=== PATIENT | female | born 1995 | race Caucasian/White ===

== ENCOUNTER 2024-11-13 09:59 | Emergency (ER) | payer MEDICAID, SELFPAY ==
[2024-11-13 10:00] VITALS: BMI 48.0
[2024-11-13 10:16] VITALS: BP 121/83; PULSE 88; RESP 18; TEMP 36.9; O2SAT 99
--- NOTE | 2024-11-13 10:21 | EDRME_ITS ---
Rapid Medical Screening Exam [facility] Arrival date/time: 11/13/24 09:59 29-year-old female with no known medical history presents to the emergency room with a chief complaint of fever, cough, congestion and a syncopal episode that occurred this morning where patient lost consciousness and woke up on the floor. I have greeted and performed a focused initial assessment of this patient. A comprehensive ED assessment and evaluation of the patient, analysis of all test results, and completion of the medical decision making process will be conducted by additional ED providers. Chief Complaint: Nausea/Vomiting/Diarrhea Vital signs: Vital Signs Temperature 98.5 F 11/13/24 10:16 Pulse Rate 88 11/13/24 10:16 Respiratory Rate 18 11/13/24 10:16 Blood Pressure 121/83 11/13/24 10:16 Pulse Oximetry (%) 99 11/13/24 10:16 Oxygen Delivery Method Room Air 11/13/24 10:16 Vital signs reviewed by provider: Yes
--- NOTE | 2024-11-13 10:21 | EKG_ITS ---
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
[2024-11-13 10:56] LABS: Basophils % (Auto) 1 % (0-2.5); Eosinophils % (Auto) 0 % (0-10); Hematocrit 39.4 % (36.0-46.0); Hemoglobin 13.1 g/dL (12.0-16.0); Immature Granulocytes % (Auto) 1 % (0-0); Immature Granulocytes Auto 0.01 Thou/mm3 (0.00-0.00); Lymphocytes # (Auto) 0.5 Thou/mm3 (1.0-4.8); Lymphocytes % (Auto) 26 % (10-50); Mean Corpuscular HGB Conc 33.2 g/dl (31.0-37.0); Mean Corpuscular Hemoglobin 25.6 pg (25.0-35.0); Mean Corpuscular Volume 77 fL (80-100); Monocytes # (Auto) 0.4 Thou/mm3 (0.0-0.8); Monocytes % (Auto) 20 % (0-12); Neutrophils # (Auto) 0.9 Thou/mm3 (1.8-7.7); Neutrophils % (Auto) 52 % (37-80); Nucleated Red Blood Cell % 0 /100 WBC (0); Platelet Count 155 Thou/mm3 (140-440); Red Blood Count 5.12 Miln/mm3 (4.00-5.20)
[2024-11-13 10:58] LABS: White Blood Count 1.8 Thou/mm3 (3.6-11.0)
--- NOTE | 2024-11-13 10:59 | XR_ITS ---
Examination: AP chest single view TECHNIQUE: Portable sitting AP chest single view Exam date and time: November 13, 2024 1122 hours INDICATIONS: Flu symptoms with syncope vomiting shortness of breath today. FINDINGS: Normal heart size No aspiration pneumonia. The osseous structures are intact IMPRESSION: No active disease
[2024-11-13 11:11] LABS: B-Type Natriuretic Peptide < 20 pg/mL (0-100)
[2024-11-13 11:13] LABS: Alanine Aminotransferase 11 U/L (10-49); Albumin, Serum 4.7 gm/dL (3.5-5.0); Albumin/Globulin Ratio 1.4 (1.2-2.2); Alkaline Phosphatase 53 U/L (46-116); Anion Gap 13 (7-16); Aspartate Amino Transferase 27 U/L (0-34); BUN/Creatinine Ratio 14 Ratio (12-20); Bilirubin,Total 0.2 mg/dL (0.3-1.2); Blood Urea Nitrogen 11 mg/dL (9-23); Calcium 9.6 mg/dL (8.3-10.6); Calcium (Corrected) 9.6 mg/dL (8.5-10.1); Carbon Dioxide 19.4 mMol/L (20.0-31.0); Chloride 104 mMol/L (98-107); Creatinine (Component) 0.8 mg/dL (0.6-1.3); Estimated Creatinine Clearance 139.4 mL/min (>60); Globulin 3.4 gm/dL (2.3-3.5); Glucose 94 mg/dL (74-106); Magnesium 1.8 mg/dL (1.6-2.6); Osmolality,Calculated 271 (275-295); Potassium 3.4 mMol/L (3.4-5.1); Sodium 136 mMol/L (136-145); Total Protein 8.1 gm/dL (5.7-8.2); Troponin I < 0.020 ng/mL (0.0-0.045); eGFR > 60 See Note
[2024-11-13] MEDS: SODIUM CHLORIDE 0.9% 1000 ML 1,000 ML 999 ML IV (11:26)
[2024-11-13] MEDS: ONDANSETRON INJ 2 MG/ML INJ 2 ML 4 MG IV (11:26)
[2024-11-13 12:49] LABS: Collection Type, Urine Clean Catch
[2024-11-13 12:57] LABS: HCG Qualitative,Urine Negative
[2024-11-13 13:04] LABS: Bilirubin,Urine Negative (Negative); Blood,Urine Negative (Negative); Clarity,Urine Clear (Clear/Hazy); Color,Urine Yellow (Lt Yel-Yel); Culture Indicated,Urine Not Indicated; Glucose, Urine Negative (Negative); Ketones,Urine 4+ (Negative); Leukocyte Esterase,Urine Negative (Negative); Nitrite,Urine Negative (Negative); Protein,Urine 2+ (Neg - Trace); RBC,Urine 3 /hpf (0-3); Specific Gravity,Urine 1.042 (1.001-1.035); Squamous Epithelial Cell,Urine 7 /hpf (0-5); Urobilinogen,Urine Negative mg/dL (0.0-1.0); WBC,Urine 3 /hpf (0-5)
--- NOTE | 2024-11-13 13:29 | PD.EDNV ---
Nausea/Vomit./Diarrhea-RME/HPI General Chief complaint: Nausea/Vomiting/Diarrhea Stated complaint: FEVER/COUGH/VOMITING AND PAST OUT THIS AM Time Seen by Provider: 11/13/24 10:27 Arrival date/time: 11/13/24 09:59 RME / HPI RME / HPI Narrative: 11/13/24 09:59 29-year-old female with no known medical history presents to the emergency room with a chief complaint of fever, cough, congestion and a syncopal episode that occurred this morning where patient lost consciousness and woke up on the floor. I have greeted and performed a focused initial assessment of this patient. A comprehensive ED assessment and evaluation of the patient, analysis of all test results, and completion of the medical decision making process will be conducted by additional ED providers. DR. CARREON MAIN ED EVALUATION 29 year old female with no stated medical history presents to the ED for evaluation after syncopal episode today. Patient reports for several days she has had flu like symptoms which include fevers, chills, headache, body aches, sweats, cough, nausea, and vomiting. States today after vomiting she woke up on the floor with her significant other by her side and did not recall what occurred. No injury or other complaints reported. Patient denies receiving her flu vaccine this season. Related Data Previous Rx's ?Medication ?Instructions ?Recorded oseltamivir 75 mg capsule (Tamiflu) 75 mg PO BID 5 days #10 caps 11/13/24 Allergies Allergy/AdvReac Type Severity Reaction Status Date / Time No Known Allergies Allergy Verified 11/13/24 10:01 Review of Systems Review of Systems Narrative Review of Systems: GEN: +fever, +chills, no weight loss, +body aches, +sweats EYES: No discharge, no visual changes, no pain HEENT: No ear pain, no congestion, no sore throat PULM: No shortness of breath, +cough, no congestion CV: +syncopal episode. No chest pain, no dyspnea on exertion, no palpitations GI: +nausea, +vomiting, no diarrhea, no pain, no constipation : No frequency, no urgency, no dysuria MUSC/SKEL: No joint pain, no back pain SKIN: No rash PSYCH: No hallucinations, no depression HEME/LYMPH: No easy bleeding or bruising tendencies NEURO: No weakness, +headache Past Medical History Past Medical History NEUROLOGIC: Negative Neurological Disorders CARDIAC: Negative Cardiac Disorders RESPIRATORY: Negative Respiratory Disorders GASTROINTESTINAL: Negative Gastrointestinal Disorders GENITOURINARY: Negative Genitourinary Disorders or Renal Disease REPRODUCTIVE: Positive Previous Pregnancies (Miscarriage in 2019) MUSCULOSKELETAL: Negative Musculoskeletal Disorders ENT: Negative History of ENT Problems ENDOCRINE: Negative Endocrine Disorders HEMATOLOGIC: Positive Blood Disorders and Anemia PSYCHO/SOCIAL: Positive Depression Surgical History SURGICAL: Positive Abdominal Surgery; Negative Cardiac Surgery or Endocrine Surgery Social History SMOKING STATUS: Never smoker ED Exam Narrative Physical exam: GENERAL APPEARANCE: alert and oriented x 4, well-developed, well-nourished, mildly tachypneic, tearful HEENT: Normocephalic, atraumatic; pupils equal, round, reactive to light; EOMI; mucous membranes pink, moist; oropharynx clear NECK: Supple LUNGS: CTABL; no wheezes, no rales, no rhonchi HEART: Mildly tachycardic; normal S1, S2; no murmurs ABDOMEN: non distended; normal BS; soft, no tenderness, no guarding, no rebound; no masses, no organomegaly, no hernia BACK: no CVA tenderness EXTREMITIES: atraumatic; no edema NEUROLOGIC: awake; alert and oriented x4; cranial nerves II-XII grossly intact; no focal sensory or motor deficits PSYCHIATRIC: appropriate mood and affect SKIN: warm, diaphoretic, normal color; no rashes Course Quality Measures none Orders Category Date Time Status Bedside COVID-19 Antigen Test NOW Care 11/13/24 10:20 Active Bedside Influenza A&B Antigen Test NOW Care 11/13/24 10:20 Completed EKG (ED ONLY) *Do not use* NOW Care 11/13/24 10:21 Completed EKG (ED Only) Stat Exams 11/13/24 10:21 Draft XR chest 1V portable Stat Exams 11/13/24 10:59 Completed B-Type Natriuretic Peptide Stat Lab 11/13/24 10:42 Completed CBC Stat Lab 11/13/24 10:42 Completed Comprehensive Metabolic Panel Stat Lab 11/13/24 10:42 Completed HCG Qualitative,Urine Stat Lab 11/13/24 12:40 Completed Magnesium Stat Lab 11/13/24 10:42 Completed Troponin I Stat Lab 11/13/24 10:42 Completed UA, C/S IF [Urinalysis, C/S if Indicated] Stat Lab 11/13/24 12:40 Completed Ketorolac Inj [Toradol Inj] Med 11/13/24 13:14 Discontinued 15 mg IVP X1 ONE Ondansetron Inj [Zofran Inj] Med 11/13/24 10:58 Discontinued 4 mg IV X1 ONE Oseltamivir [Tamiflu] Med 11/13/24 13:18 Discontinued 75 mg PO X1 ONE Sodium Chloride 0.9% 1000 ml [Ns] 1,000 ml Med 11/13/24 10:58 Discontinued IV 999 mls/hr Vital Signs Vital signs: Vital Signs Temperature 98.5 F 11/13/24 10:16 Pulse Rate 88 11/13/24 10:16 Respiratory Rate 18 11/13/24 10:16 Blood Pressure 121/83 11/13/24 10:16 Pulse Oximetry (%) 99 11/13/24 10:16 Oxygen Delivery Method Room Air 11/13/24 10:16 Pulse ox is 99% on room air which is adequate. Nausea/Vomiting/Diarrhea MDM Narrative MDM Narrative:: Rina Tinsley am scribing for and in the presence of Dr. Carreon. Patient data External records reviewed:: [facility] previous records Clinical information provided by:: patient Social determinants that could affect healthcare access:: none Patient has the following chronic illnesses:: None reported How is presenting disease/condition affected by chronic disease/condition?: no chronic disease Evaluation data The following diagnostics were reviewed and interpreted by me:: lab results, radiology exam(s) and EKG tracing(s) (Normal sinus rhythm, rate 91, no acute ischemia. ) Lab and/or radiology exams considered but not ordered:: None Interpretation Summary: Ordering Physician: Isamar Carreon MD Date of Service: 11/13/24 Procedure(s): XR chest 1V portable Accession Number(s): [id number] cc: Pawan Carey MD; Isamar Carreon MD~ Examination: AP chest single view TECHNIQUE: Portable sitting AP chest single view Exam date and time: November 13, 2024 1122 hours INDICATIONS: Flu symptoms with syncope vomiting shortness of breath today. FINDINGS: Normal heart size No aspiration pneumonia. The osseous structures are intact IMPRESSION: No active disease Dictated By: Pawan Carey MD Signed By: <Electronically signed by Pawan Carey MD in OV> 11/13/24 1148 Medications / Prescriptions Medications / Prescriptions considered but not ordered:: None Medication administrations:: Medication Administration History Discontinued Medications Sodium Chloride (Ns) 1,000 mls @ 999 mls/hr IV .Q1H1M ONE Stop: 11/13/24 11:58 Last Admin: 11/13/24 11:26 Dose: 999 mls/hr Documented By: JT Comments: scanner not working Ketorolac Tromethamine (Ketorolac Inj 30 Mg/Ml Vial) 15 mg IVP X1 ONE Stop: 11/13/24 13:15 Last Admin: 11/13/24 13:59 Dose: 15 mg Documented By: JT Comments: scanner not working Ondansetron HCl (Ondansetron Inj 2 Mg/Ml Inj 2 Ml) 4 mg IV X1 ONE Stop: 11/13/24 10:59 Last Admin: 11/13/24 11:26 Dose: 4 mg Documented By: JT Comments: scanner not working Oseltamivir Phosphate (Oseltamivir 75 Mg Capsule) 75 mg PO X1 ONE Stop: 11/13/24 13:19 Last Admin: 11/13/24 14:00 Dose: 75 mg Documented By: JT Comments: scanner not working See above Consultations Consultation(s) initiated? (list below): No Diagnosis Nausea Differential Diagnosis: food poisoning, gastroenteritis, clostridium difficile infection, drug-induced nausea and vomiting, dehydration and other (Viral illness) Most likely diagnosis given after review of the tests above:: Influenza B Syncope Admission Indicated Admission indicated?: not indicated Admission Request Was there a request for admission?: No Disposition Plan Disposition Plan: Discharge Discharge Attestation Discharge Attestation: The patient and all family members were given an opportunity to ask questions and understood the discharge instructions. Discharge instructions specifically effects, indications for sooner follow up or return to the emergency department, and the expected course of current diagnosis. Patient condition: Stable Discharge Plan Plan Patient Disposition: HOME (Self Care) Prescriptions/Referrals Prescriptions/Med Rec: New oseltamivir [Tamiflu] 75 mg capsule 75 mg PO BID 5 Days Qty: 10 0RF Referrals: No Primary/Family,Physician [Primary Care Provider] - In 1 week Problem List Clinical Impression: Influenza B, Syncope Patient/Caregiver Discharge Instructions Education Materials: Causes of Syncope, ED Influenza (Adult) Print Language: Greenlandic Stand Alone Forms: [facility] Award Info., Work/School Release, Patient Portal Info Letter
[2024-11-13 13:30] VITALS: BP 133/73; PULSE 85; RESP 17; TEMP 37; O2SAT 99
[2024-11-13] MEDS: KETOROLAC INJ 30 MG/ML VIAL 15 MG IVP (13:59)
[2024-11-13] MEDS: OSELTAMIVIR 75 MG CAPSULE PO (14:00)
[2024-11-13 15:17] VITALS: BP 130/82; PULSE 90; RESP 16; TEMP 36.9; O2SAT 98
[2024-11-13 20:03] LABS: Path Review Blood Smear Sent to Pathologist
== END 2024-11-13 15:17 | disposition home or self-care (01) ==
PROVIDERS: Nurse Practitioner Family; Emergency Provider Emergency Medicine
DX: J10.1 Influenza due to other identified influenza virus with other respiratory manifestations (principal)
CPT/HCPCS: 36415; 71045; 80053; 81001; 81025; 83735; 83880; 84484; 85025; 87400; 87811; 93005; 99284; J1885; J2405; J7030; A9270

== ENCOUNTER 2025-05-28 06:47 | Emergency (ER) | payer MEDICAID, SELFPAY ==
[2025-05-28 06:48] VITALS: BMI 34.3
[2025-05-28 07:10] VITALS: BP 123/82; PULSE 99; RESP 17; TEMP 37.1; O2SAT 98
--- NOTE | 2025-05-28 07:16 | XR_ITS ---
Examination: CT abdomen and pelvis without contrast. Coronal 3-D reconstructions. Sagittal 2-D reconstructions. Date and time of exam: May 28, 2025 1033 hrs. Indications: Lower abdominal pain nausea vomiting beginning 3 days ago CTDI: vol (mGy): 8.15 DLP: (mGycm): 486 Technique: Axial images of the abdomen have been obtained, 3 mm slice thickness Intravenous contrast material has not been administered. Low dose protocols were performed. One or more of the following dose reduction techniques were used; automated exposure control, adjustment of the mA and/or KV according to patient size, use of iterative reconstruction technique. Findings: Diffuse fatty infiltration throughout the liver Suspicious for gallstones versus gallbladder sludge No pancreatic or adrenal mass 2 mm nonobstructing right renal calculus axial image 91 No hydronephrosis or ureteral calculi. No bowel obstruction No diverticulitis No bladder mass No pericecal inflammatory change Retroverted uterus with marked enlargement fundus Impression: Recommend hepatobiliary sonography to exclude gallbladder sludge versus stones Recommend pelvic sonography to assess markedly enlarged fundus of uterus 2 mm nonobstructing right renal calculus
--- NOTE | 2025-05-28 07:16 | EKG_ITS ---
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
--- NOTE | 2025-05-28 07:17 | PD.EDRME ---
Rapid Medical Screening Exam [facility] Arrival date/time: 05/28/25 06:47 30-year-old female presents to Emergency Department today for complaints of food poisoning send Sunday patient reports nausea vomiting reports she had a syncopal episode today Chief Complaint: Nausea/Vomiting/Diarrhea Time Seen by Provider: 05/28/25 07:11 Vital signs: Vital Signs Temperature 98.8 F 05/28/25 07:10 Pulse Rate 99 05/28/25 07:10 Respiratory Rate 17 05/28/25 07:10 Blood Pressure 123/82 05/28/25 07:10 Pulse Oximetry (%) 98 05/28/25 07:10 Oxygen Delivery Method Room Air 05/28/25 07:10
[2025-05-28 08:00] LABS: Basophils # (Auto) 0.0 Thou/mm3 (0.0-0.2); Basophils % (Auto) 1 % (0-2.5); Eosinophils # (Auto) 0.0 Thou/mm3 (0.0-0.5); Eosinophils % (Auto) 1 % (0-10); Hematocrit 40.3 % (36.0-46.0); Hemoglobin 13.2 g/dL (12.0-16.0); Immature Granulocytes Auto 0.01 Thou/mm3 (0.00-0.00); Lymphocytes # (Auto) 1.1 Thou/mm3 (1.0-4.8); Lymphocytes % (Auto) 22 % (10-50); Mean Corpuscular HGB Conc 32.8 g/dl (31.0-37.0); Mean Corpuscular Hemoglobin 25.7 pg (25.0-35.0); Mean Corpuscular Volume 78 fL (80-100); Monocytes # (Auto) 0.4 Thou/mm3 (0.0-0.8); Monocytes % (Auto) 8 % (0-12); Neutrophils # (Auto) 3.4 Thou/mm3 (1.8-7.7); Neutrophils % (Auto) 69 % (37-80); Nucleated Red Blood Cell # 0.00 Thou/mm3 (0.00-0.00); Nucleated Red Blood Cell % 0 /100 WBC (0); Platelet Count 283 Thou/mm3 (140-440); RDW Standard Deviation 43.4 fL (36.4-46.3); Red Blood Count 5.14 Miln/mm3 (4.00-5.20); White Blood Count 4.9 Thou/mm3 (3.6-11.0)
[2025-05-28 08:20] LABS: INR 1.0 (0.9-1.3); Partial Thromboplastin Time 24.3 Seconds (22.0-36.0); Prothrombin Time 11.3 Seconds (9.0-12.2)
[2025-05-28 08:23] LABS: Collection Type, Urine Clean Catch
[2025-05-28 08:34] LABS: Alanine Aminotransferase 8 U/L (10-49); Albumin, Serum 5.1 gm/dL (3.5-5.0); Albumin/Globulin Ratio 1.6 (1.2-2.2); Alkaline Phosphatase 53 U/L (46-116); Anion Gap 14 (7-16); Aspartate Amino Transferase 16 U/L (0-34); BUN/Creatinine Ratio 14 Ratio (12-20); Bilirubin,Total 0.6 mg/dL (0.3-1.2); Blood Urea Nitrogen 11 mg/dL (9-23); Calcium 10.6 mg/dL (8.3-10.6); Calcium (Corrected) 10.6 mg/dL (8.5-10.1); Carbon Dioxide 21.0 mMol/L (20.0-31.0); Chloride 102 mMol/L (98-107); Creatinine (Component) 0.8 mg/dL (0.6-1.3); Estimated Creatinine Clearance 114.2 mL/min (>60); Globulin 3.1 gm/dL (2.3-3.5); Glucose 83 mg/dL (74-106); Lipase 20 U/L (12-53); Osmolality,Calculated 272 (275-295); Potassium 3.4 mMol/L (3.4-5.1); Sodium 137 mMol/L (136-145); Total Protein 8.2 gm/dL (5.7-8.2); Troponin I < 0.020 ng/mL (0.0-0.045); eGFR > 60 See Note
[2025-05-28 09:01] LABS: Bilirubin,Urine Negative (Negative); Blood,Urine 3+ (Negative); Color,Urine Dark-Brown (Lt Yel-Yel); Glucose, Urine Negative (Negative); Ketones,Urine 4+ (Negative); Leukocyte Esterase,Urine Positive (Negative); Nitrite,Urine Negative (Negative); PH,Urine 6.0 (5.0-7.0); Protein,Urine 3+ (Neg - Trace); RBC,Urine 6954 /hpf (0-3); Specific Gravity,Urine 1.037 (1.001-1.035); Squamous Epithelial Cell,Urine 8 /hpf (0-5); Urobilinogen,Urine Negative mg/dL (0.0-1.0); WBC,Urine 54 /hpf (0-5)
[2025-05-28 09:38] LABS: HCG Qualitative,Urine Negative
[2025-05-28 09:51] LABS: Clarity,Urine Cloudy (Clear/Hazy); Culture Indicated,Urine Yes
[2025-05-28 10:07] VITALS: BP 163/92; PULSE 70; RESP 17; TEMP 36.8; O2SAT 100
[2025-05-28] MEDS: SODIUM CHLORIDE 0.9% 1000 ML 1,000 ML 999 ML IV (11:07)
--- NOTE | 2025-05-28 12:20 | PD.EDNV ---
Nausea/Vomit./Diarrhea-RME/HPI General Chief complaint: Nausea/Vomiting/Diarrhea Stated complaint: FOOD POISONING; SYNCOPE Time Seen by Provider: 05/28/25 07:11 Arrival date/time: 05/28/25 06:47 Limitations: no limitations RME / HPI RME / HPI Narrative: 05/28/25 06:47 30-year-old female presents to Emergency Department today for complaints of food poisoning send Sunday patient reports nausea vomiting reports she had a syncopal episode today MD complaint: nausea, vomiting and diarrhea Onset (ago): day(s) Description of Vomiting: food contents Description of Diarrhea: water Associated Abdominal Pain: No Severity: moderate Severity scale (1-10): 5 Quality: cramping Consistency: intermittent Relieving factors: rest Exacerbating factors: eating Context: possible food poisoning Associated symptoms: loss of appetite, malaise and nausea/vomiting Related Data Previous Rx's ?Medication ?Instructions ?Recorded cephalexin 500 mg capsule 500 mg PO Q6H UTI #40 caps 05/28/25 Allergies Allergy/AdvReac Type Severity Reaction Status Date / Time No Known Allergies Allergy Verified 05/28/25 06:50 Review of Systems Review of Systems Systems Reviewed: All systems reviewed, normal except as documented Past Medical History Past Medical History NEUROLOGIC: Negative Neurological Disorders CARDIAC: Negative Cardiac Disorders RESPIRATORY: Negative Respiratory Disorders GASTROINTESTINAL: Negative Gastrointestinal Disorders GENITOURINARY: Negative Genitourinary Disorders or Renal Disease REPRODUCTIVE: Positive Previous Pregnancies (Miscarriage in 2019) MUSCULOSKELETAL: Negative Musculoskeletal Disorders ENT: Negative History of ENT Problems ENDOCRINE: Negative Endocrine Disorders HEMATOLOGIC: Positive Blood Disorders and Anemia PSYCHO/SOCIAL: Positive Depression Surgical History SURGICAL: Positive Abdominal Surgery; Negative Cardiac Surgery or Endocrine Surgery Social History SMOKING STATUS: Never smoker ED Exam General Limitations: Present no limitations General appearance: Present alert and in no apparent distress Head Head exam: Present atraumatic Eye Eye exam: Present normal appearance, PERRL and EOMI ENT ENT exam: Present normal exam, normal oropharynx and mucous membranes moist Neck Neck exam: Present normal inspection, full ROM and trachea midline Chest Chest inspection: Present normal inspection and symmetric chest wall rise Respiratory Respiratory exam: Present normal lung sounds bilaterally Cardiovascular Cardiovascular exam: Present regular rate, normal rhythm and normal heart sounds Abdominal Exam Abdominal exam: Present soft and normal bowel sounds Extremities Exam Extremities exam: Present normal inspection and full ROM Back Exam Back exam: Present normal inspection and full ROM Neurological Exam Neurological exam: Present alert, oriented X3 and CN II-XII intact Psychiatric Psychiatric exam: Present normal affect and normal mood Skin Skin exam: Present warm, dry, intact and normal color Course Quality Measures none Orders Category Date Time Status Community Sports Coordinator NOW Care 05/28/25 10:31 Active Continuous Pulse Oximetry NOW Care 05/28/25 10:31 Completed EKG (ED ONLY) *Do not use* NOW Care 05/28/25 07:16 Completed Insert IV NOW Care 05/28/25 10:[address] abdomen pelvis wo con Stat Exams 05/28/25 07:16 Completed EKG (ED Only) Stat Exams 05/28/25 07:16 Draft CBC Stat Lab 05/28/25 07:40 Completed Comprehensive Metabolic Panel Stat Lab 05/28/25 07:40 Completed HCG Qualitative,Urine Stat Lab 05/28/25 07:56 Completed Lipase Stat Lab 05/28/25 07:40 Completed PT [Prothrombin Time with INR] Stat Lab 05/28/25 07:40 Completed PTT [Partial Thromboplastin Time] Stat Lab 05/28/25 07:40 Completed Stool for WBCs Stat Lab 05/28/25 12:24 Ordered Troponin I Stat Lab 05/28/25 07:40 Completed UA, C/S IF [Urinalysis, C/S if Indicated] Stat Lab 05/28/25 07:56 Completed Urine Culture Stat Lab 05/28/25 07:56 Received Sodium Chloride 0.9% 1000 ml [Ns] 1,000 ml Med 05/28/25 10:30 Discontinued IV 999 mls/hr cefTRIAXone [Rocephin] 2 gm Med 05/28/25 12:19 Discontinued SODIUM CHLORIDE 0.9% (Popper) [Ns 0.9% (P)] 50 ml IV X1 Vital Signs Vital signs: Vital Signs Temperature 98.8 F 05/28/25 07:10 Pulse Rate 99 05/28/25 07:10 Respiratory Rate 17 05/28/25 07:10 Blood Pressure 123/82 05/28/25 07:10 Pulse Oximetry (%) 98 05/28/25 07:10 Oxygen Delivery Method Room Air 05/28/25 07:10 Pulse ox is 98% on room air which is adequate. Nausea/Vomiting/Diarrhea MDM Narrative MDM Narrative:: Patient is a 30-year-old female who ate a meal a few days ago and felt sick. None of her other family members felt sick. She is feeling better after IV fluids. She denies any current abdominal pain or dysuria. Patient data External records reviewed:: [facility] previous records (I reviewed ED Visit on 11/13/2024 ) Clinical information provided by:: patient Social determinants that could affect healthcare access:: none Patient has the following chronic illnesses:: Anemia How is presenting disease/condition affected by chronic disease/condition?: uneffected by Evaluation data The following diagnostics were reviewed and interpreted by me:: lab results, radiology exam(s) and EKG tracing(s) (05/28/2025 @ 07:20 AM. NSR, rate 81, no STEMI. ) Lab and/or radiology exams considered but not ordered:: None Interpretation Summary: Ordering Physician: Cristian ALLEN)[place] NP Date of Service: 05/28/25 Procedure(s): CT abdomen pelvis wo con Accession Number(s): [id number] cc: Cristian ALLEN),Austin OSORIO; Pawan Carey MD; NO PRIMARY/FAMILY,PHYSICIAN~ Examination: CT abdomen and pelvis without contrast. Coronal 3-D reconstructions. Sagittal 2-D reconstructions. Date and time of exam: May 28, 2025 1033 hrs. Indications: Lower abdominal pain nausea vomiting beginning 3 days ago CTDI: vol (mGy): 8.15 DLP: (mGycm): 486 Technique: Axial images of the abdomen have been obtained, 3 mm slice thickness Intravenous contrast material has not been administered. Low dose protocols were performed. One or more of the following dose reduction techniques were used; automated exposure control, adjustment of the mA and/or KV according to patient size, use of iterative reconstruction technique. Findings: Diffuse fatty infiltration throughout the liver Suspicious for gallstones versus gallbladder sludge No pancreatic or adrenal mass 2 mm nonobstructing right renal calculus axial image 91 No hydronephrosis or ureteral calculi. No bowel obstruction No diverticulitis No bladder mass No pericecal inflammatory change Retroverted uterus with marked enlargement fundus Impression: Recommend hepatobiliary sonography to exclude gallbladder sludge versus stones Recommend pelvic sonography to assess markedly enlarged fundus of uterus 2 mm nonobstructing right renal calculus Dictated By: Pawan Carey MD Signed By: <Electronically signed by Pawan Carey MD in OV> 05/28/25 1056 Medications / Prescriptions Medications / Prescriptions considered but not ordered:: None Medication administrations:: Medication Administration History Discontinued Medications Sodium Chloride (Ns) 1,000 mls @ 999 mls/hr IV .Q1H1M ONE Stop: 05/28/25 11:30 Last Infusion: 05/28/25 12:08 Dose: Infused Documented By: Admin: 05/28/25 11:07 Dose: 999 mls/hr Documented By: EF Ceftriaxone Sodium 2 gm/ (Sodium Chloride) 50 mls @ 100 mls/hr IV X1 ONE Stop: 05/28/25 12:48 Last Infusion: 05/28/25 13:17 Dose: Infused Documented By: Admin: 05/28/25 12:47 Dose: 100 mls/hr Documented By: EF See above Consultations Consultation(s) initiated? (list below): No Diagnosis Nausea Differential Diagnosis: food poisoning, gastroenteritis, clostridium difficile infection, drug-induced nausea and vomiting and dehydration Most likely diagnosis given after review of the tests above:: Gastroenteritis UTI Admission Indicated Admission indicated?: not indicated Admission Request Was there a request for admission?: No Disposition Plan Disposition Plan: Discharge Discharge Attestation Discharge Attestation: The patient and all family members were given an opportunity to ask questions and understood the discharge instructions. Discharge instructions specifically effects, indications for sooner follow up or return to the emergency department, and the expected course of current diagnosis. Patient condition: Stable Discharge Plan Plan Patient Disposition: HOME (Self Care) Prescriptions/Referrals Prescriptions/Med Rec: New cephalexin 500 mg capsule 500 mg PO Q6H MDD 4 Qty: 40 0RF Referrals: No Primary/Family,Physician [Primary Care Provider] - In 1 week Problem List Clinical Impression: Gastroenteritis, UTI (urinary tract infection) Patient/Caregiver Discharge Instructions Education Materials: Urinary Tract Infections in Women, Understanding Urinary Tract ..., ED CYSTITIS Female Adult Additional Instructions: Take the Keflex antibiotic 500 mg 4 times a day for 10 days. Drink plenty of fluids. Bedrest. Off work for 3 days. Print Language: Kazakh Stand Alone Forms: [facility] Award Info., Work/School Release, Patient Portal Info Letter
[2025-05-28 12:33] VITALS: BP 118/71; PULSE 91; RESP 16; TEMP 37.1; O2SAT 100
[2025-05-28 12:46] VITALS: PULSE 87
[2025-05-28] MEDS: cefTRIAXone 2 GM in SODIUM CHLORIDE 0.9% (Popper) 50 ML IV (12:47)
[2025-05-28 14:43] VITALS: BP 117/84; PULSE 87; RESP 17; TEMP 36.7; O2SAT 99
== END 2025-05-28 16:01 | disposition home or self-care (01) ==
PROVIDERS: Nurse Practitioner Primary Care; Emergency Provider Family Medicine
DX: K52.9 Noninfective gastroenteritis and colitis, unspecified (principal); N39.0 Urinary tract infection, site not specified; N20.0 Calculus of kidney; N85.2 Hypertrophy of uterus
CPT/HCPCS: 36415; 74176; 80053; 81001; 81025; 83690; 84484; 85025; 85610; 85730; 87086; 87205; 93005; 96361; 96365; 99283; J0696; J7030; J7050